=== PATIENT | female | born 1995 | race Caucasian/White ===

== ENCOUNTER 2017-12-23 13:08 | Emergency (ER) | payer BC, MEDICAID, SELFPAY ==
[2017-12-23 13:18] VITALS: BP 119/83; PULSE 81; RESP 18; TEMP 36.9; O2SAT 98; BMI 28.1
--- NOTE | 2017-12-23 13:26 | US_ITS ---
US OB transvaginal HISTORY: Injury with pain and cramping ITS.REASON: 8 weeks , fell, cramping ORDERING PHYSICIAN: Orestes Szymanski MD PATIENT AGE: 22 years COMPARISON: None FINDINGS: An intrauterine gestational sac is present with a pole with a crown-rump length of 1.99cm correlating to gestational age of 8 weeks 4 days. heart tones are present with an FHR of 160 bpm's. Yolk sac is noted. The amnion and chorion have not yet fused. No obvious subchorionic hemorrhage Adnexa: Unremarkable. IMPRESSION: Live intrauterine gestation at 8 weeks 4 days. Estimated due date by ultrasound is 08/01/2018
--- NOTE | 2017-12-23 13:28 | PC.NURSE ---
transportation engineering technician called in per radiology clerk at this time.
--- NOTE | 2017-12-23 13:38 | HMH.EDPREG ---
ED Disposition Clinical Impression: Abdominal trauma, First trimester Disposition: Home, Self-Care Condition on Discharge: Fair Additional Instructions: 1- absolute bed rest. 2- no vaginal douches or intercourse. 3- continue vitamins. 4- see your OB docotr on 12/25/17 for repeat hormone level. 5- to return for worse pain or vaginal bleeding. 6- please give the patient list of OB doctors in [facility]. - Critical Care Critical Care Time: No Attestation: On 12/23/17, the high probability of a clinically significant, sudden or life threatening deterioration of the following system(s) required my full and direct attention, intervention and personal management. The time I documented below is in addition to time spent performing reported procedures but includes the following listed in this critical care notation. Medical Decision Making Vital Signs: 12/23/17 13:18 Temperature 98.5 F Temperature Source Oral Pulse Rate [Right Brachial] 81 Respiratory Rate 18 Blood Pressure [Right Arm] 119/83 Blood Pressure Mean [Right Arm] 95 Blood Pressure Source [Right Arm] Automatic Cuff Blood Pressure Position [Right Arm] Sitting 02 Sat by Pulse Oximetry 98 Oxygen Delivery Method Room Air - Lab Data Lab Results 12/23/17 13:39: WBC 5.1, RBC 4.48, Hgb 13.7, Hct 40.8, MCV 91.1, MCH 30.5, MCHC 33.5, RDW 13.1, Plt Count 251, MPV 11.0 H, Neut % (Auto) 55.1, Lymph % (Auto) 31.7, [place] % (Auto) 7.7, Eos % (Auto) 5.1, Baso % (Auto) 0.4, Neut # (Auto) 2.8, Lymph # (Auto) 1.6, [place] # (Auto) 0.4, Eos # (Auto) 0.3, Baso # (Auto) 0.0 12/23/17 13:39: Sodium 138, Potassium 3.6, Chloride 104, Carbon Dioxide 23, Anion Gap 14.6, BUN 8, Creatinine 0.60, Estimated Creat Clear 191, Estimated GFR 126, Est GFR ( Amer) 153, Glucose 98, Calcium 8.7, Total Bilirubin 0.4, AST 10 L, ALT 21, Alkaline Phosphatase 59, Total Protein 7.5, Albumin 3.6, Globulin 3.9 H, Albumin/Globulin Ratio 0.9 L 12/23/17 13:39: Serum HCG, Qual Positive 12/23/17 13:48: Urine Color Dark yellow, Urine Appearance Clear, Urine pH 5.5, Ur Specific [place] 1.025, Urine Protein Trace, Urine Glucose (UA) Negative, Urine Ketones Negative, Urine Blood Negative, Urine Nitrate Negative, Urine Bilirubin Negative, Urine Urobilinogen 1.0, Ur Leukocyte Esterase Trace, Urine RBC None, Urine WBC Occasional, Ur Squamous Epith Cells Occasional, Urine Bacteria 2+ 12/23/17 14:00: Blood Type O Positive Result diagrams: 12/23/17 13:39 12/23/17 13:39 Orders (Tests/Meds): ORDERS Category Date Time Status HCG,Quantitative Stat Lab 12/23/17 13:30 Received Urine Culture Stat Micro 12/23/17 13:48 Received US OB transvaginal Stat Ultrasound 12/23/17 13:26 Taken - Bret Inquiry Pt receiving controlled substance: No Bret was queried for this patient: No Medical Decision Making Narrative: I spoke with the patient about her test results, ultrasound shows intact sac and heart tones. I advised her for repeat hormone level in 48 hours and follow-up with a local physician. She preferred to go to her pmo lead at [place]. The patient verbalized understanding of the need for 48 hours follow-up. I called the on-call pmo lead Dr. Jackson who agreed with the DC plan. HPI - General Chief complaint: OB/Uterine Contractions Stated complaint: 8 weeks fell on stomach Mode of Arrival: Ambulatory Limitations: No Limitations Description of Symptoms (Recalled from ER Triage Doc. by RN): Pt reports she is 8 weeks , tripped and fell approx 1 hour stated she fell on her stomach. States has been having pelvic cramping that pt describes like period cramps that began after falling - History of Present Illness HPI Narrative: 22 years old white female 2 para 1 A0 with last menstrual period of October 21, 2017. She claims that she tripped over a toy and fell face forward landed on her abdomen, totally after she developed
[2017-12-23 13:41] LABS: Basophils % 0.4 % (0.1-2.0); Eosinophils # 0.3 K/mm3 (0.0-0.4); Eosinophils % 5.1 % (0.1-12.0); Hematocrit 40.8 % (37.0-47.0); Hemoglobin 13.7 g/dL (12.2-16.2); Lymphocytes # 1.6 K/mm3 (0.7-4.5); Lymphocytes % 31.7 K/mm3 (10-50); Mean Corpuscular HGB Conc 33.5 g/dL (31.8-35.4); Mean Corpuscular Hemoglobin 30.5 pg (27.0-31.2); Mean Corpuscular Volume 91.1 fl (81-99); Monocytes # 0.4 K/mm3 (0.1-1.0); Monocytes % 7.7 % (1.7-9.3); Neutrophils # 2.8 K/mm3 (1.8-7.8); Neutrophils % 55.1 % (37.0-80.0); Platelet Count 251 K/mm3 (142-424); Red Blood Count 4.48 M/mm3 (4.20-5.40); Red Cell Distribution Width 13.1 % (11.5-17.5); White Blood Count 5.1 K/mm3 (4.8-10.8)
--- NOTE | 2017-12-23 13:41 | ED_ITS ---
ED Disposition Clinical Impression: Abdominal trauma, First trimester Disposition: Home, Self-Care Condition on Discharge: Fair Additional Instructions: 1- absolute bed rest. 2- no vaginal douches or intercourse. 3- continue vitamins. 4- see your OB docotr on 12/25/17 for repeat hormone level. 5- to return for worse pain or vaginal bleeding. 6- please give the patient list of OB doctors in [facility]. - Critical Care Critical Care Time: No Attestation: On 12/23/17, the high probability of a clinically significant, sudden or life threatening deterioration of the following system(s) required my full and direct attention, intervention and personal management. The time I documented below is in addition to time spent performing reported procedures but includes the following listed in this critical care notation. Medical Decision Making Vital Signs: 12/23/17 13:18 Temperature 98.5 F Temperature Source Oral Pulse Rate [Right Brachial] 81 Respiratory Rate 18 Blood Pressure [Right Arm] 119/83 Blood Pressure Mean [Right Arm] 95 Blood Pressure Source [Right Arm] Automatic Cuff Blood Pressure Position [Right Arm] Sitting 02 Sat by Pulse Oximetry 98 Oxygen Delivery Method Room Air - Lab Data Lab Results 12/23/17 13:39: WBC 5.1, RBC 4.48, Hgb 13.7, Hct 40.8, MCV 91.1, MCH 30.5, MCHC 33.5, RDW 13.1, Plt Count 251, MPV 11.0 H, Neut % (Auto) 55.1, Lymph % (Auto) 31.7, [place] % (Auto) 7.7, Eos % (Auto) 5.1, Baso % (Auto) 0.4, Neut # (Auto) 2.8 , Lymph # (Auto) 1.6, [place] # (Auto) 0.4, Eos # (Auto) 0.3, Baso # (Auto) 0.0 12/23/17 13:39: Sodium 138, Potassium 3.6, Chloride 104, Carbon Dioxide 23, Anion Gap 14.6, BUN 8, Creatinine 0.60, Estimated Creat Clear 191, Estimated GFR 126, Est GFR ( Amer) 153, Glucose 98, Calcium 8.7, Total Bilirubin 0.4, AST 10 L, ALT 21, Alkaline Phosphatase 59, Total Protein 7.5, Albumin 3.6, Globulin 3.9 H, Albumin/Globulin Ratio 0.9 L 12/23/17 13:39: Serum HCG, Qual Positive 12/23/17 13:48: Urine Color Dark yellow, Urine Appearance Clear, Urine pH 5.5, Ur Specific [place] 1.025, Urine Protein Trace, Urine Glucose (UA) Negative, Urine Ketones Negative, Urine Blood Negative, Urine Nitrate Negative, Urine Bilirubin Negative, Urine Urobilinogen 1.0, Ur Leukocyte Esterase Trace, Urine RBC None, Urine WBC Occasional, Ur Squamous Epith Cells Occasional, Urine Bacteria 2+ 12/23/17 14:00: Blood Type O Positive Result diagrams: 12/23/17 13:39 12/23/17 13:39 Orders (Tests/Meds): ORDERS Category Date Time Status HCG,Quantitative Stat Lab 12/23/17 13:30 Received Urine Culture Stat Micro 12/23/17 13:48 Received US OB transvaginal Stat Ultrasound 12/23/17 13:26 Taken - Bret Inquiry Pt receiving controlled substance: No Bret was queried for this patient: No Medical Decision Making Narrative: I spoke with the patient about her test results, ultrasound shows intact sac and heart tones. I advised her for repeat hormone level in 48 hours and follow-up with a local physician. She preferred to go to her health and wellness coach at [place]. The patient verbalized understanding of the need for 48 hours follow -up. I called the on-call health and wellness coach Dr. Jackson who agreed with the DC plan. HPI - General Chief complaint: OB/Uterine Contractions Stated complaint: 8 weeks fell on stomach Mode of Arrival: Ambulatory
[2017-12-23 13:56] LABS: Appearance,Urine CLEAR (Clear); Blood, Urine Negative (Negative); Glucose,Urine (UA) Negative (Negative); Ketones,Urine Negative (Negative); Leukocyte Esterase,Urine TRACE (Negative); Microscopic, Urine URINE MICROSCOPIC (MICROSCOPIC); Nitrate,Urine Negative (Negative); PH,Urine 5.5 (5.0-8.5); Protein,Urine TRACE (Negative); Specific Gravity, Urine 1.025 (1.005-1.030)
[2017-12-23 13:59] LABS: Alanine Aminotransferase 21 U/L (12-78); Albumin Level 3.6 gm/dL (3.4-5.0); Albumin/Globulin Ratio 0.9 (1.1-1.8); Alkaline Phosphatase 59 U/L (46-116); Anion Gap 14.6 mEq/L (5-15); Aspartate Amino Transferase 10 U/L (15-37); Bilirubin,Total 0.4 mg/dL (0.2-1.0); Blood Urea Nitrogen 8 mg/dL (7-18); Calcium 8.7 mg/dL (8.5-10.1); Carbon Dioxide 23 mmol/L (21.0-32.0); Chloride 104 mmol/L (98-107); Creatinine Clearance Estimated 191 mL/min (0-300); Estimated Glomerular Filt Rate 126 ml/min (>60); GFR (African American) 153 ML/MIN (>60); Globulin 3.9 gm/dl (1.3-3.2); Glucose 98 mg/dL (74-106); Potassium 3.6 mmoL/L (3.5-5.1); Sodium 138 mmol/L (136-145); Total Protein,Serum 7.5 gm/dL (6.4-8.2)
[2017-12-23 14:00] LABS: HCG Qualitative, Serum Positive (Negative)
[2017-12-23 14:07] LABS: Bilirubin,Urine Negative (Negative); Color,Urine Dark Yellow (Yellow); WBC,Urine Occasional #/hpf (0-3)
[2017-12-23 14:08] LABS: Bacteria,Urine 2+ /lpf; Squamous Epithelial Cell,Urine Occasional #/hpf (0-5)
[2017-12-23 14:46] VITALS: BP 115/70; PULSE 78; RESP 20; TEMP 37.1; O2SAT 100
== END 2017-12-23 14:46 | disposition home or self-care (01) ==
PROVIDERS: Emergency Provider Emergency Medicine
DX: S30.1XXA Contusion of abdominal wall, initial encounter (principal); W01.0XXA Fall on same level from slipping, tripping and stumbling without subsequent striking against object, initial encounter; Y92.019 Unspecified place in single-family (private) house as the place of occurrence of the external cause; Z34.81 Encounter for supervision of other normal pregnancy, first trimester
CPT/HCPCS: 36415; 76830; 80053; 81001; 84702; 84703; 85025; 86900; 86901; 87086; 99282

== ENCOUNTER 2018-01-26 13:34 | Emergency (ER) | payer BC, MEDICAID, SELFPAY ==
[2018-01-26 13:43] VITALS: BP 118/63; PULSE 97; RESP 16; TEMP 36.8; O2SAT 97; BMI 28.1
[2018-01-26 14:19] LABS: Microscopic, Urine URINE MICROSCOPIC (MICROSCOPIC)
[2018-01-26 14:26] LABS: Appearance,Urine CLEAR (Clear); Blood, Urine Negative (Negative); Color,Urine YELLOW (Yellow); Glucose,Urine (UA) Negative (Negative); Ketones,Urine 2+ (Negative); Leukocyte Esterase,Urine Negative (Negative); Nitrate,Urine Negative (Negative); Protein,Urine TRACE (Negative); Specific Gravity, Urine 1.025 (1.005-1.030); Urobilinogen,Urine 0.2 EU/dl (0.2)
[2018-01-26 14:27] LABS: Urine Pregnancy, HCG Qual. Positive (Negative)
--- NOTE | 2018-01-26 14:30 | PC.NURSE ---
1420- attempted to listen to heart tones and unable to at this time. tari landon to assess for FHT
[2018-01-26 14:35] LABS: Bilirubin,Urine 1+ (Negative)
[2018-01-26 14:37] LABS: Alanine Aminotransferase 15 U/L (12-78); Albumin Level 3.2 gm/dL (3.4-5.0); Albumin/Globulin Ratio 0.8 (1.1-1.8); Alkaline Phosphatase 57 U/L (46-116); Anion Gap 14.3 mEq/L (5-15); Aspartate Amino Transferase 11 U/L (15-37); Bilirubin,Total 0.4 mg/dL (0.2-1.0); Blood Urea Nitrogen 5 mg/dL (7-18); Calcium 8.9 mg/dL (8.5-10.1); Carbon Dioxide 22 mmol/L (21.0-32.0); Chloride 105 mmol/L (98-107); Creatinine Clearance Estimated 255 mL/min (0-300); Creatinine,Serum 0.45 mg/dL (0.55-1.02); Estimated Glomerular Filt Rate 176 ml/min (>60); GFR (African American) 213 ML/MIN (>60); Globulin 3.9 gm/dl (1.3-3.2); Glucose 114 mg/dL (74-106); Potassium 3.3 mmoL/L (3.5-5.1); Sodium 138 mmol/L (136-145); Total Protein,Serum 7.1 gm/dL (6.4-8.2)
[2018-01-26 14:41] LABS: Bacteria,Urine 3+ /lpf; Mucus,Urine 4+ /lpf; Squamous Epithelial Cell,Urine 20-50 #/hpf (0-5); WBC,Urine Occasional #/hpf (0-3)
--- NOTE | 2018-01-26 14:41 | HMH.EDWEAK ---
ED Disposition Clinical Impression: Malaise, and not yet delivered in second trimester Disposition: Home, Self-Care Condition on Discharge: Good Instructions: Diet Additional Instructions: See your family doctor in the next few days to recheck urine; no pus in urine today but specimen contaminated with squamous cells from the skin surrounding the urinary area (Not a true clean catch ). See Dr. Sutherland next available appointment for recheck. - Critical Care Critical Care Time: No Attestation: On 01/26/18, the high probability of a clinically significant, sudden or life threatening deterioration of the following system(s) required my full and direct attention, intervention and personal management. The time I documented below is in addition to time spent performing reported procedures but includes the following listed in this critical care notation. Medical Decision Making - Bret Inquiry Pt receiving controlled substance: No Vital Signs: 01/26/18 13:43 Temperature 98.3 F Temperature Source Oral Pulse Rate [Right Radial] 97 H Respiratory Rate 16 Blood Pressure [Right Arm] 118/63 Blood Pressure Mean [Right Arm] 81 Blood Pressure Source [Right Arm] Automatic Cuff Blood Pressure Position [Right Arm] Sitting 02 Sat by Pulse Oximetry 97 - Lab Data Lab results reviewed: Yes: I reviewed the patient's lab results. Lab Results 01/26/18 14:00: Urine Color Yellow, Urine Appearance Clear, Urine pH 6.0, Ur Specific [place] 1.025, Urine Protein Trace, Urine Glucose (UA) Negative, Urine Ketones 2+, Urine Blood Negative, Urine Nitrate Negative, Urine Bilirubin 1+ A, Urine Urobilinogen 0.2, Ur Leukocyte Esterase Negative, Urine RBC 3-5, Urine WBC Occasional, Ur Squamous Epith Cells 20-50, Urine Bacteria 3+, Urine Mucus 4+ 01/26/18 14:00: WBC 4.8, RBC 4.21, Hgb 12.9, Hct 37.0, MCV 87.8, MCH 30.5, MCHC 34.8, RDW 12.9, Plt Count 219, MPV 9.7, Neut % (Auto) 63.4, Lymph % (Auto) 26.7, [place] % (Auto) 6.2, Eos % (Auto) 3.3, Baso % (Auto) 0.4, Neut # (Auto) 3.0, Lymph # (Auto) 1.3, [place] # (Auto) 0.3, Eos # (Auto) 0.2, Baso # (Auto) 0.0 01/26/18 14:00: Urine HCG, Qual Positive 01/26/18 14:00: Sodium 138, Potassium 3.3 L, Chloride 105, Carbon Dioxide 22, Anion Gap 14.3, BUN 5 L, Creatinine 0.45 L, Estimated Creat Clear 255, Estimated GFR 176, Est GFR ( Amer) 213, Glucose 114 H, Calcium 8.9, Total Bilirubin 0.4, AST 11 L, ALT 15, Alkaline Phosphatase 57, Total Protein 7.1, Albumin 3.2 L, Globulin 3.9 H, Albumin/Globulin Ratio 0.8 L Result diagrams: 01/26/18 14:00 01/26/18 14:00 Orders (Tests/Meds): ED MEDICATIONS Generic Name Dose Route Start Last Admin Trade Name Freq PRN Reason Stop Dose Admin Sodium Chloride 1,000 mls @ 999 mls/hr 01/26/18 14:15 01/26/18 14:15 Sod Chlor 0.9% 1000ml Bag IV 01/26/18 15:15 999 mls/hr .[id number] [email or web address] Administration ORDERS Category Date Time Status Urine Culture Stat Micro 01/26/18 14:00 Received - Reevaluation(s) Time: 14:52 Reevaluation #1: Feeling much better; no complaints Weakness HPI - General Chief complaint: Dizziness Stated complaint: Dizzy shaky 14 weeks Time Seen by Provider: 01/26/18 14:25 Mode of Arrival: Ambulatory Limitations: No Limitations Description of Symptoms (Recalled from ER Triage Doc. by RN): Pt states dizziness and shaking for a week. Pt reports she is 14 weeks . - History of Present Illness HPI Narrative: A0 with US done at , Dr. Sutherland, showing EDC 07/23/18; reports nausea since becoming gravid, felt a little shaky today; no vomiting; no urinary sx; no vaginal bleeding. Eating well and drinking fluids, takes PNV. No fever or cough, no reggie vomiting, no abdominal or pelvic pain. FHT's 140's on arrival to ED. States first complicated by bleeding post and denies any type of bleeding at this time. - Related Data Home Medications Medication Instructio
--- NOTE | 2018-01-26 14:45 | ED_ITS ---
ED Disposition Clinical Impression: Malaise, and not yet delivered in second trimester Disposition: Home, Self-Care Condition on Discharge: Good Instructions: Diet Additional Instructions: See your family doctor in the next few days to recheck urine; no pus in urine today but specimen contaminated with squamous cells from the skin surrounding the urinary area (Not a true clean catch ). See Dr. Sutherland next available appointment for recheck. - Critical Care Critical Care Time: No Attestation: On 01/26/18, the high probability of a clinically significant, sudden or life threatening deterioration of the following system(s) required my full and direct attention, intervention and personal management. The time I documented below is in addition to time spent performing reported procedures but includes the following listed in this critical care notation. Medical Decision Making - Bret Inquiry Pt receiving controlled substance: No Vital Signs: 01/26/18 13:43 Temperature 98.3 F Temperature Source Oral Pulse Rate [Right Radial] 97 H Respiratory Rate 16 Blood Pressure [Right Arm] 118/63 Blood Pressure Mean [Right Arm] 81 Blood Pressure Source [Right Arm] Automatic Cuff Blood Pressure Position [Right Arm] Sitting 02 Sat by Pulse Oximetry 97 - Lab Data Lab results reviewed: Yes: I reviewed the patient's lab results. Lab Results 01/26/18 14:00: Urine Color Yellow, Urine Appearance Clear, Urine pH 6.0, Ur Specific [place] 1.025, Urine Protein Trace, Urine Glucose (UA) Negative, Urine Ketones 2+, Urine Blood Negative, Urine Nitrate Negative, Urine Bilirubin 1+ A, Urine Urobilinogen 0.2, Ur Leukocyte Esterase Negative, Urine RBC 3-5, Urine WBC Occasional, Ur Squamous Epith Cells 20-50, Urine Bacteria 3+, Urine Mucus 4+ 01/26/18 14:00: WBC 4.8, RBC 4.21, Hgb 12.9, Hct 37.0, MCV 87.8, MCH 30.5, MCHC 34.8, RDW 12.9, Plt Count 219, MPV 9.7, Neut % (Auto) 63.4, Lymph % (Auto) 26.7 , [place] % (Auto) 6.2, Eos % (Auto) 3.3, Baso % (Auto) 0.4, Neut # (Auto) 3.0, Lymph # (Auto) 1.3, [place] # (Auto) 0.3, Eos # (Auto) 0.2, Baso # (Auto) 0.0 01/26/18 14:00: Urine HCG, Qual Positive 01/26/18 14:00: Sodium 138, Potassium 3.3 L, Chloride 105, Carbon Dioxide 22, Anion Gap 14.3, BUN 5 L, Creatinine 0.45 L, Estimated Creat Clear 255, Estimated GFR 176, Est GFR ( Amer) 213, Glucose 114 H, Calcium 8.9, Total Bilirubin 0.4, AST 11 L, ALT 15, Alkaline Phosphatase 57, Total Protein 7.1, Albumin 3.2 L, Globulin 3.9 H, Albumin/Globulin Ratio 0.8 L Result diagrams: 01/26/18 14:00 01/26/18 14:00 Orders (Tests/Meds): ED MEDICATIONS Generic Name Dose Route Start Last Admin Trade Name Freq PRN Reason Stop Dose Admin Sodium Chloride 1,000 mls @ 999 mls/hr 01/26/18 14:15 01/26/18 14:15 Sod Chlor 0.9% 1000ml Bag IV 01/26/18 15:15 999 mls/hr .[id number] [email or web address] Administration ORDERS Category Date Time Status Urine Culture Stat Micro 01/26/18 14:00 Received - Reevaluation(s) Time: 14:52 Reevaluation #1: Feeling much better; no complaints Weakness HPI - General Chief complaint: Dizziness Stated complaint: Dizzy shaky 14 weeks Time Seen by Provider: 01/26/18 14:25 Mode of Arrival: Ambulatory Limitations: No Limitations Description of Symptoms (Recalled from ER Triage Doc. by RN): Pt states dizziness and shaking for a week. Pt reports she is 14 weeks pregna
[2018-01-26 14:52] LABS: Basophils % 0.4 % (0.1-2.0); Eosinophils # 0.2 K/mm3 (0.0-0.4); Eosinophils % 3.3 % (0.1-12.0); Hemoglobin 12.9 g/dL (12.2-16.2); Lymphocytes # 1.3 K/mm3 (0.7-4.5); Lymphocytes % 26.7 K/mm3 (10-50); Mean Corpuscular HGB Conc 34.8 g/dL (31.8-35.4); Mean Corpuscular Hemoglobin 30.5 pg (27.0-31.2); Mean Corpuscular Volume 87.8 fl (81-99); Mean Platelet Volume 9.7 fl (7.4-10.4); Monocytes # 0.3 K/mm3 (0.1-1.0); Monocytes % 6.2 % (1.7-9.3); Neutrophils % 63.4 % (37.0-80.0); Platelet Count 219 K/mm3 (142-424); Red Blood Count 4.21 M/mm3 (4.20-5.40); Red Cell Distribution Width 12.9 % (11.5-17.5); White Blood Count 4.8 K/mm3 (4.8-10.8)
[2018-01-26 15:24] VITALS: BP 124/73; PULSE 74; RESP 16; TEMP 36.7; O2SAT 97
[2018-01-27 00:10] LABS: POC Glucose,Bedside 128 (70-110)
== END 2018-01-26 15:26 | disposition home or self-care (01) ==
PROVIDERS: Emergency Provider Emergency Medicine
DX: R53.81 Other malaise (principal); R42 Dizziness and giddiness; Z3A.14 14 weeks gestation of pregnancy
CPT/HCPCS: 80053; 81001; 81025; 82962; 85025; 87086; 96365; 99283

== ENCOUNTER 2018-04-24 15:00 | Outpatient (CLI) | payer BC, MEDICAID, SELFPAY ==
[2018-04-24 15:13] VITALS: BMI 29.2
[2018-04-24 15:27] VITALS: BP 113/71; PULSE 109; RESP 16; TEMP 36.9; O2SAT 96; BMI 29.2
[2018-04-24 15:34] LABS: Microscopic, Urine URINE MICROSCOPIC (MICROSCOPIC)
[2018-04-24 15:36] LABS: Appearance,Urine CLEAR (Clear); Bilirubin,Urine Negative (Negative); Blood, Urine Negative (Negative); Color,Urine YELLOW (Yellow); Glucose,Urine (UA) Negative (Negative); Ketones,Urine Negative (Negative); Leukocyte Esterase,Urine Negative (Negative); Nitrate,Urine Negative (Negative); Protein,Urine Negative (Negative); Specific Gravity, Urine 1.015 (1.005-1.030)
[2018-04-24 15:47] LABS: Amphetamine/Metha Screen,Urine Negative ng/mL (<1000); Barbiturates Screen,Urine Negative ng/mL (<200); Benzodiazepines Screen,Urine Negative ng/mL (<200); Cannabinoid Screen,Urine Negative ng/mL (<50); Cocaine Screen,Urine Negative ng/mL (<300); Methadone Screen,Urine Negative ng/mL (<300); Opiate Screen,Urine Negative ng/mL (<300); Phencyclidine Screen,Urine Negative ng/mL (<25)
[2018-04-24 15:56] LABS: WBC,Urine Occasional #/hpf (0-3)
[2018-04-24 15:57] LABS: Amorphous Sediment,Urine Trace /lpf; Bacteria,Urine 1+ /lpf
[2018-04-24 16:04] LABS: Fetal Fibronectin (Rapid) Negative (Negative)
== END 2018-04-24 16:15 | disposition home or self-care (01) ==
LOC: OBOUT 15:03 → OB 15:04
PROVIDERS: Visit Provider Obstetrics & Gynecology
DX: O26.892 Other specified pregnancy related conditions, second trimester (principal); Z3A.27 27 weeks gestation of pregnancy; R10.9 Unspecified abdominal pain
CPT/HCPCS: 59025; 80305; 81001; 82731

== ENCOUNTER 2018-05-11 15:08 | Outpatient (CLI) | payer BC, MEDICAID, SELFPAY ==
[2018-05-11 15:19] VITALS: BP 103/71; PULSE 108; RESP 18; TEMP 37.3; O2SAT 95; BMI 28.8
== END 2018-05-11 15:57 | disposition home or self-care (01) ==
LOC: OBOUT 15:12 → OB 15:12
PROVIDERS: Visit Provider Nurse Practitioner Obstetrics & Gynecology
DX: O36.8130 Decreased fetal movements, third trimester, not applicable or unspecified (principal); Z3A.29 29 weeks gestation of pregnancy
CPT/HCPCS: 59025

== ENCOUNTER 2018-05-28 13:46 | Outpatient (CLI) | payer BC, MEDICAID, SELFPAY ==
[2018-05-28 13:58] VITALS: BMI 30.1
[2018-05-28 14:15] LABS: Microscopic, Urine URINE MICROSCOPIC (MICROSCOPIC)
[2018-05-28 14:18] LABS: Appearance,Urine CLEAR (Clear); Bilirubin,Urine Negative (Negative); Blood, Urine Negative (Negative); Color,Urine YELLOW (Yellow); Glucose,Urine (UA) Negative (Negative); Ketones,Urine Negative (Negative); Leukocyte Esterase,Urine Negative (Negative); Nitrate,Urine Negative (Negative); Protein,Urine Negative (Negative); Specific Gravity, Urine 1.025 (1.005-1.030); Urobilinogen,Urine 0.2 EU/dl (0.2)
[2018-05-28 14:20] VITALS: BP 108/70; PULSE 104; RESP 18; TEMP 37.4; O2SAT 96; BMI 30.1
[2018-05-28 14:24] LABS: Amphetamine/Metha Screen,Urine Negative ng/mL (<1000); Barbiturates Screen,Urine Negative ng/mL (<200); Benzodiazepines Screen,Urine Negative ng/mL (<200); Cannabinoid Screen,Urine Negative ng/mL (<50); Cocaine Screen,Urine Negative ng/mL (<300); Methadone Screen,Urine Negative ng/mL (<300); Opiate Screen,Urine Negative ng/mL (<300); Phencyclidine Screen,Urine Negative ng/mL (<25)
[2018-05-28 14:39] LABS: Bacteria,Urine 3+ /lpf; Mucus,Urine 3+ /lpf; WBC,Urine Occasional #/hpf (0-3)
== END 2018-05-28 15:05 | disposition home or self-care (01) ==
LOC: OBOUT 13:48 → OB 13:50
PROVIDERS: Visit Provider Nurse Practitioner Obstetrics & Gynecology
DX: O47.03 False labor before 37 completed weeks of gestation, third trimester (principal); Z3A.32 32 weeks gestation of pregnancy
CPT/HCPCS: 59025; 80305; 81001; 87086

== ENCOUNTER 2018-07-09 13:31 | Outpatient (CLI) | payer BC, MEDICAID, SELFPAY ==
[2018-07-09 14:03] VITALS: RESP 20; TEMP 36.7; O2SAT 100; BMI 29.7
[2018-07-09 14:13] LABS: Microscopic, Urine URINE MICROSCOPIC (MICROSCOPIC)
[2018-07-09 14:19] LABS: Appearance,Urine CLEAR (Clear); Bilirubin,Urine Negative (Negative); Blood, Urine Negative (Negative); Color,Urine YELLOW (Yellow); Glucose,Urine (UA) Negative (Negative); Ketones,Urine Negative (Negative); Leukocyte Esterase,Urine Negative (Negative); Nitrate,Urine Negative (Negative); Protein,Urine Negative (Negative); Specific Gravity, Urine 1.025 (1.005-1.030); Urobilinogen,Urine 0.2 EU/dl (0.2)
[2018-07-09 14:31] LABS: Bacteria,Urine 3+ /lpf; Squamous Epithelial Cell,Urine 20-50 #/hpf (0-5)
[2018-07-09 14:32] LABS: Mucus,Urine 2+ /lpf
[2018-07-09 14:35] LABS: Amphetamine/Metha Screen,Urine Negative ng/mL (<1000); Barbiturates Screen,Urine Negative ng/mL (<200); Benzodiazepines Screen,Urine Negative ng/mL (<200); Cannabinoid Screen,Urine Negative ng/mL (<50); Cocaine Screen,Urine Negative ng/mL (<300); Methadone Screen,Urine Negative ng/mL (<300); Opiate Screen,Urine Negative ng/mL (<300); Phencyclidine Screen,Urine Negative ng/mL (<25)
== END 2018-07-09 14:40 | disposition home or self-care (01) ==
LOC: OBOUT 13:34 → OB 13:34
PROVIDERS: Visit Provider Nurse Practitioner Obstetrics & Gynecology
DX: O60.03 Preterm labor without delivery, third trimester (principal); Z3A.39 39 weeks gestation of pregnancy
CPT/HCPCS: 59025; 80305; 81001; 87086